=== PATIENT | male | born 1935 | race Caucasian/White ===

== ENCOUNTER 2017-09-23 06:22 | Inpatient (IN) | payer MEDICARE, OTHER ==
[2017-09-23] MEDS ORDERED: FENTAnyl 50 MCG/ML VIAL (08:22)
[2017-09-23] MEDS ORDERED: PROPOFOL 20 ML (08:32)
[2017-09-23] MEDS ORDERED: MIDAZOLAM 1 MG/ML 2 ML INJ (08:32)
[2017-09-23] MEDS ORDERED: CEFAZOLIN 1 GM INJ (08:39)
[2017-09-23] MEDS ORDERED: LABETALOL HCL 20MG INJ (08:43)
[2017-09-23] MEDS: POLYMYXIN/BACITRACIN 1L IRRIG (09:06)
[2017-09-23] MEDS ORDERED: hydrALAzine 20 MG INJ (09:56)
[2017-09-23] MEDS ORDERED: hydrALAzine 20 MG INJ IV (10:30)
[2017-09-23] MEDS ORDERED: DIPHENHYDRAMINE 50 MG INJ IV (10:30)
[2017-09-23] MEDS ORDERED: ONDANSETRON 4 MG INJ (10:30)
[2017-09-23] MEDS ORDERED: HYDROmorphONE (0.2 MG/ML) 10ML SYG IV ×2 (10:30)
[2017-09-23] MEDS ORDERED: CEFAZOLIN 1 GM/50 ML (PMX) 50 ML IVPB (10:31)
[2017-09-23] MEDS: ONDANSETRON 4 MG INJ IV ×3 (10:33→21:07)
[2017-09-23] MEDS: CEFAZOLIN 1 GM/50 ML (PMX) 50 ML IVPB ×2 (10:33→18:44)
[2017-09-23] MEDS: ASPIRIN (EC) 325 MG TAB PO ×2 (10:43)
[2017-09-23] MEDS: HYDROmorphONE (0.2 MG/ML) 10ML SYG IV ×4 (10:47→12:42)
[2017-09-23] MEDS: OXYCODONE/ACETAMINOPHEN (5/325) TAB PO (13:21)
[2017-09-23] MEDS ORDERED: GLUCOSE GEL 15 GRAM TUBE BUCCAL (14:30)
[2017-09-23] MEDS ORDERED: GLUCOSE GEL 15 GRAM TUBE PO ×2 (14:30)
[2017-09-23] MEDS ORDERED: DEXTROSE 50% 50 ML SYRINGE IV ×2 (14:30)
[2017-09-23] MEDS ORDERED: GLUCAGON 1 MG INJ IM (14:30)
[2017-09-23] MEDS: CLONIDINE 0.1 MG/24 HR PATCH TRANSDERM (14:51)
[2017-09-23] MEDS: morphine 10 MG INJ IV ×4 (15:14→21:05)
[2017-09-23] MEDS: ENALAPRIL 5 MG TAB PO ×2 (15:46→20:27)
[2017-09-23] MEDS: INSULIN ASPART [NOVOLOG] 3 ML PEN SC ×2 (17:52→20:28)
[2017-09-23] MEDS: IBUPROFEN 800 MG TAB PO (18:00)
[2017-09-23] MEDS: QUETIAPINE 100 MG TAB PO (20:26)
[2017-09-23] MEDS: ATORVASTATIN 80 MG TAB PO (20:26)
[2017-09-23] MEDS: clonAZEPAM 0.5 MG TAB PO (20:26)
[2017-09-23] MEDS: INSULIN GLARGINE [LANtus] 3 ML PEN SC (20:34)
[2017-09-23] MEDS ORDERED: ENALAPRIL 5 MG TAB PO (21:00)
[2017-09-24] MEDS: ACCU-CHEK XX (01:25)
[2017-09-24] MEDS: CEFAZOLIN 1 GM/50 ML (PMX) 50 ML IVPB (03:19)
[2017-09-24] MEDS: ONDANSETRON 4 MG INJ IV (04:30)
[2017-09-24] MEDS: IBUPROFEN 800 MG TAB PO ×5 (05:27→23:01)
[2017-09-24] MEDS: morphine 2 MG INJ IV (05:28)
[2017-09-24 05:38] LABS: ADD MAN DIFF? NO
[2017-09-24 05:47] LABS: WHITE BLOOD COUNT 10.4 10^3/ul (4.8-10.8)
[2017-09-24 05:47] LABS: BASOPHIL # 0.1 10^3/ul (0.0-0.1); BASOPHILS % 0.6 % (0.0-2.0); EOSINOPHILS # 0.2 10^3/ul (0.0-0.5); EOSINOPHILS % 2.3 % (0.0-7.0); HEMOGLOBIN 10.9 g/dl (14.0-18.0); LYMPHOCYTES # 2.6 10^3/ul (0.8-2.9); LYMPHOCYTES % 24.6 % (15.0-51.0); MEAN CORPUSCULAR HEMOGLOBIN 25.4 pg (29.0-33.0); MEAN CORPUSCULAR HGB CONC 31.1 g/dl (32.0-37.0); MEAN CORPUSCULAR VOLUME 81.6 fl (82.0-101.0); MEAN PLATELET VOLUME 10.1 fl (7.4-10.4); MONOCYTE # 1.1 10^3/ul (0.3-0.9); MONOCYTES % 10.3 % (0.0-11.0); NEUTROPHIL # 6.4 10^3/ul (1.6-7.5); NEUTROPHILS % 61.6 % (39.0-77.0); PLATELET COUNT 335 10^3/UL (140-415); RED BLOOD COUNT 4.29 10^6/ul (4.70-6.10); RED CELL DISTRIBUTION WIDTH 15.1 % (11.5-14.5)
[2017-09-24 06:06] LABS: INR 1.04; PROTIME 13.7 Sec (11.9-14.9); PT RATIO 1.1
[2017-09-24 06:10] LABS: ANION GAP 14 (8-16); BLOOD UREA NITROGEN 22 mg/dl (7-20); CALCIUM 8.6 mg/dl (8.4-10.2); CARBON DIOXIDE 26 mmol/L (21-31); CHLORIDE 106 mmol/L (97-110); CREATININE 1.13 mg/dl (0.61-1.24); GLUCOSE 144 mg/dl (70-220); POTASSIUM 4.1 mmol/L (3.5-5.1); SODIUM 142 mmol/L (135-144)
[2017-09-24] MEDS: INSULIN ASPART [NOVOLOG] 3 ML PEN SC ×4 (07:50→20:45)
[2017-09-24] MEDS: ENALAPRIL 5 MG TAB PO ×2 (08:17→20:49)
[2017-09-24] MEDS: ASPIRIN (EC) 325 MG TAB PO (08:17)
[2017-09-24] MEDS: AMLODIPINE 10 MG TAB PO (08:18)
[2017-09-24] MEDS: FLUOXETINE 20 MG CAP PO (08:18)
[2017-09-24] MEDS ORDERED: clonAZEPAM 0.5 MG TAB PO (09:00)
[2017-09-24] MEDS ORDERED: QUETIAPINE 100 MG TAB PO (09:00)
[2017-09-24] MEDS: OXYCODONE/ACETAMINOPHEN (5/325) TAB PO (15:44)
[2017-09-24] MEDS: INSULIN GLARGINE [LANtus] 3 ML PEN SC (20:46)
[2017-09-24] MEDS: clonAZEPAM 0.5 MG TAB PO (20:48)
[2017-09-24] MEDS: ATORVASTATIN 80 MG TAB PO (20:48)
[2017-09-24] MEDS: QUETIAPINE 100 MG TAB PO (20:48)
[2017-09-24] MEDS: morphine 10 MG INJ IV (20:49)
[2017-09-25] MEDS: ACCU-CHEK XX (02:11)
[2017-09-25 05:35] LABS: ADD MAN DIFF? NO
[2017-09-25] MEDS: IBUPROFEN 800 MG TAB PO ×2 (05:35→12:00)
[2017-09-25 05:46] LABS: WHITE BLOOD COUNT 10.5 10^3/ul (4.8-10.8)
[2017-09-25 05:46] LABS: BASOPHIL # 0.1 10^3/ul (0.0-0.1); BASOPHILS % 0.6 % (0.0-2.0); EOSINOPHILS # 0.4 10^3/ul (0.0-0.5); EOSINOPHILS % 4.1 % (0.0-7.0); HEMATOCRIT 33.9 % (42.0-52.0); HEMOGLOBIN 10.4 g/dl (14.0-18.0); LYMPHOCYTES # 2.4 10^3/ul (0.8-2.9); LYMPHOCYTES % 22.7 % (15.0-51.0); MEAN CORPUSCULAR HEMOGLOBIN 25.5 pg (29.0-33.0); MEAN CORPUSCULAR HGB CONC 30.7 g/dl (32.0-37.0); MEAN CORPUSCULAR VOLUME 83.1 fl (82.0-101.0); MEAN PLATELET VOLUME 10.1 fl (7.4-10.4); MONOCYTE # 0.9 10^3/ul (0.3-0.9); MONOCYTES % 8.5 % (0.0-11.0); NEUTROPHIL # 6.7 10^3/ul (1.6-7.5); NEUTROPHILS % 63.7 % (39.0-77.0); PLATELET COUNT 345 10^3/UL (140-415); RED BLOOD COUNT 4.08 10^6/ul (4.70-6.10); RED CELL DISTRIBUTION WIDTH 14.8 % (11.5-14.5)
[2017-09-25] MEDS: morphine 2 MG INJ IV (05:46)
[2017-09-25 06:19] LABS: ANION GAP 13 (8-16); BLOOD UREA NITROGEN 22 mg/dl (7-20); CALCIUM 8.8 mg/dl (8.4-10.2); CARBON DIOXIDE 26 mmol/L (21-31); CHLORIDE 108 mmol/L (97-110); CREATININE 1.28 mg/dl (0.61-1.24); GLUCOSE 122 mg/dl (70-220); POTASSIUM 4.2 mmol/L (3.5-5.1); SODIUM 143 mmol/L (135-144)
[2017-09-25 06:35] LABS: INR 1.05; PROTIME 13.8 Sec (11.9-14.9); PT RATIO 1.1
[2017-09-25] MEDS: INSULIN ASPART [NOVOLOG] 3 ML PEN SC ×2 (07:50→13:24)
[2017-09-25] MEDS: ENALAPRIL 5 MG TAB PO (09:07)
[2017-09-25] MEDS: FLUOXETINE 20 MG CAP PO (09:07)
[2017-09-25] MEDS: AMLODIPINE 10 MG TAB PO (09:07)
[2017-09-25] MEDS: ASPIRIN (EC) 325 MG TAB PO (09:07)
== END 2017-09-25 16:00 | disposition home health service (06) | DRG 475 ==
LOC: REC 06:22 → MS1 13:11
PROVIDERS: Surgery Vascular Surgery
PROC: 0Y6H0Z2 Detachment at Right Lower Leg, Mid, Open Approach (ICD-10-PCS; principal; 2017-09-23 08:08)
DX: T84.69XA Infection and inflammatory reaction due to internal fixation device of other site, initial encounter (principal); M86.471 Chronic osteomyelitis with draining sinus, right ankle and foot; J44.9 Chronic obstructive pulmonary disease, unspecified; I96 Gangrene, not elsewhere classified; D63.8 Anemia in other chronic diseases classified elsewhere; I25.110 Atherosclerotic heart disease of native coronary artery with unstable angina pectoris; G54.6 Phantom limb syndrome with pain; E11.52 Type 2 diabetes mellitus with diabetic peripheral angiopathy with gangrene; E78.5 Hyperlipidemia, unspecified; F32.9 Major depressive disorder, single episode, unspecified; F29 Unspecified psychosis not due to a substance or known physiological condition; F41.9 Anxiety disorder, unspecified; F17.200 Nicotine dependence, unspecified, uncomplicated; G89.29 Other chronic pain; G47.00 Insomnia, unspecified; I10 Essential (primary) hypertension; K21.9 Gastro-esophageal reflux disease without esophagitis; M81.0 Age-related osteoporosis without current pathological fracture; N40.0 Benign prostatic hyperplasia without lower urinary tract symptoms; Z79.84 Long term (current) use of oral hypoglycemic drugs; Z79.82 Long term (current) use of aspirin; Z79.83 Long term (current) use of bisphosphonates; Z79.1 Long term (current) use of non-steroidal anti-inflammatories (NSAID)
CPT/HCPCS: 71045; 72170; 76856; 80048; 82962; 85025; 85610; 87086; 88307; 93880; 97110; 97116; 97163

== ENCOUNTER 2018-01-02 17:57 | Emergency (ER) | payer MEDICARE, OTHER ==
[2018-01-02 18:35] LABS: ADD MAN DIFF? NO
[2018-01-02] MEDS: ASPIRIN 81 MG TAB PO (18:36)
[2018-01-02 18:37] LABS: WHITE BLOOD COUNT 11.6 10^3/ul (4.8-10.8)
[2018-01-02 18:37] LABS: BASOPHIL # 0.1 10^3/ul (0.0-0.1); BASOPHILS % 0.5 % (0.0-2.0); EOSINOPHILS # 0.4 10^3/ul (0.0-0.5); EOSINOPHILS % 3.3 % (0.0-7.0); HEMATOCRIT 44.5 % (42.0-52.0); HEMOGLOBIN 14.4 g/dl (14.0-18.0); LYMPHOCYTES # 2.5 10^3/ul (0.8-2.9); LYMPHOCYTES % 21.5 % (15.0-51.0); MEAN CORPUSCULAR HEMOGLOBIN 25.9 pg (29.0-33.0); MEAN CORPUSCULAR HGB CONC 32.4 g/dl (32.0-37.0); MEAN CORPUSCULAR VOLUME 79.9 fl (82.0-101.0); MONOCYTE # 0.8 10^3/ul (0.3-0.9); MONOCYTES % 6.6 % (0.0-11.0); NEUTROPHIL # 7.8 10^3/ul (1.6-7.5); NEUTROPHILS % 67.7 % (39.0-77.0); PLATELET COUNT 253 10^3/UL (140-415); RED BLOOD COUNT 5.57 10^6/ul (4.70-6.10); RED CELL DISTRIBUTION WIDTH 14.9 % (11.5-14.5)
[2018-01-02 18:53] LABS: ANION GAP 11 (8-16); BLOOD UREA NITROGEN 24 mg/dl (7-20); CALCIUM 9.5 mg/dl (8.4-10.2); CARBON DIOXIDE 25 mmol/L (21-31); CHLORIDE 107 mmol/L (97-110); CREATININE 1.05 mg/dl (0.61-1.24); GLUCOSE 163 mg/dl (70-220); POTASSIUM 4.5 mmol/L (3.5-5.1); SODIUM 138 mmol/L (135-144)
[2018-01-02] MEDS ORDERED: NITROGLYCERIN (SL) 0.4 MG TAB (19:12)
[2018-01-02] MEDS: NITROGLYCERIN (SL) 0.4 MG TAB SL (19:13)
[2018-01-02] MEDS ORDERED: ONDANSETRON 4 MG INJ (19:20)
[2018-01-02] MEDS: ONDANSETRON 4 MG INJ IV (19:21)
== END 2018-01-02 19:39 | disposition short-term general hospital (02) ==
LOC: E/R 17:57
DX: I21.3 ST elevation (STEMI) myocardial infarction of unspecified site (principal); I10 Essential (primary) hypertension; E11.9 Type 2 diabetes mellitus without complications; Z79.4 Long term (current) use of insulin; Z87.891 Personal history of nicotine dependence
CPT/HCPCS: 36415; 71045; 80048; 84484; 85025; 93005; 96374; 99291-25